=== PATIENT | male | born 1970 | race Caucasian/White ===

== ENCOUNTER 2016-11-27 13:27 | Emergency (ER) | payer BC ==
[2016-11-27 15:31] VITALS: BP 130/83
--- NOTE | 2016-11-27 16:01 | UC ---
UC General HPI - HPI Summary HPI Summary: patient has had flu like symptoms for 3 days. - History of Current Complaint Chief Complaint: UCGeneralIllness Stated Complaint: FLU LIKE SXS Time Seen by Provider: 11/27/16 15:26 Hx Obtained From: Patient Onset/Duration: Sudden Onset, Lasting Days Onset Severity: Severe Current Severity: Moderate Pain Intensity: 6 Associated Signs & Symptoms: Positive: Headache - Allergy/Home Medications Allergies/Adverse Reactions: Allergies Allergy/AdvReac Type Severity Reaction Status Date / Time Clavulanic Acid AdvReac Intermediate See Comment Verified 11/27/16 15:16 [From Augmentin] Home Medications: Home Medications NK [No Home Medications Reported] 11/27/16 [History Confirmed 11/27/16] PMH/Surg Hx/FS Hx/Imm Hx Previously Healthy: Yes Endocrine History Of: Denies: Diabetes, Thyroid Disease Cardiovascular History Of: Denies: Cardiac Disorders, Hypertension Respiratory History Of: Denies: COPD, Asthma GI/ History Of: Denies: Ulcer - Surgical History Surgical History: Yes Surgery Procedure, Year, and Place: Appendectomy. T&A. ear tubes - Family History Known Family History: Positive: Hypertension - Social History Alcohol Use: Rare Substance Use Type: None Smoking Status (MU): Never Smoked Tobacco - Immunization History Most Recent Influenza Vaccination: Not the Season Most Recent Tetanus Shot: 11/16/12 Review of Systems Constitutional: Fever, Chills Skin: Negative Eyes: Negative ENT: Sore Throat, Nasal Discharge Respiratory: Shortness Of Breath, Cough Cardiovascular: Negative Gastrointestinal: Negative Genitourinary: Negative Motor: Negative Neurovascular: Negative Musculoskeletal: Myalgia Neurological: Negative All Other Systems Reviewed And Are Negative: Yes Physical Exam Triage Information Reviewed: Yes Appearance: Well-Nourished, Ill-Appearing, Pain Distress Vital Signs: Initial Vital Signs Temp 98.6 F 11/27/16 15:15 Pulse 76 11/27/16 15:15 Resp 18 11/27/16 15:15 BP 130/83 11/27/16 15:15 Pulse Ox 100 11/27/16 15:15 Vital Signs Reviewed: Yes Eye Exam: Normal Eyes: Positive: Conjunctiva Clear ENT Exam: Other ENT: Positive: Pharyngeal erythema, TM red Dental Exam: Normal Neck exam: Normal Neck: Positive: Supple, Nontender, Enlarged Nodes @ - bilateral cervical Respiratory Exam: Normal Respiratory: Positive: Chest non-tender, Lungs clear, Normal breath sounds Cardiovascular Exam: Normal Cardiovascular: Positive: RRR, No Murmur, Pulses Normal Abdominal Exam: Normal Abdomen Description: Positive: Nontender, No Organomegaly, Soft Bowel Sounds: Positive: Present Musculoskeletal Exam: Normal Musculoskeletal: Positive: Strength Intact, ROM Intact, No Edema Neurological Exam: Normal Neurological: Positive: Alert, Muscle Tone Normal Psychological Exam: Normal Skin Exam: Normal Course/Dx - Course Course Of Treatment: history obtained, exam performed, meds reviewed, prednisone prescribed. rapid flu neg. - Differential Dx - Multi-Symptom Provider Diagnoses: URI. pharnygitis Discharge - Discharge Plan Condition: Stable Disposition: HOME Patient Education Materials: Pharyngitis (ED) Additional Instructions: take the medication as prescribed. Increase your fluid intake and get plenty of rest. Continue with ibuprofen and tylenol as needed for pain.
== END 2016-11-27 16:09 | disposition home or self-care (01) ==
LOC: UCCORT 13:27
DX: J06.9 Acute upper respiratory infection, unspecified (principal); J02.9 Acute pharyngitis, unspecified; Z88.1 Allergy status to other antibiotic agents
CPT/HCPCS: 87502; 99211; G0463

== ENCOUNTER 2017-07-04 17:01 | Emergency (ER) | payer BC ==
[2017-07-04] MEDS ORDERED: Acetaminophen TAB* 325 MG PO ONE (17:37)
[2017-07-04 17:42] VITALS: BP 126/84
--- NOTE | 2017-07-04 18:30 | RAD ---
Indication: Right knee pain. 4 views of the right knee demonstrates no fracture. No other bone or joint abnormality is noted. IMPRESSION: No fracture of the right knee is noted.
--- NOTE | 2017-07-04 19:01 | UC ---
Knee Pain HPI - HPI Summary HPI Summary: YESTERDAY WHILE WORKING ON [employer], STOOD UP AND RIGHT KNEE DISLOCATED. KNEE WENT BACK INTO PLACE, BUT TO DAY KNEE IS PAINFUL (AT PATELLA) AND FEELS UNSTABLE TO WALK ON. NO HISTORY OF PREVIOUS INJURY - History of Current Complaint Chief Complaint: UCLowerExtremity Stated Complaint: RIGHT KNEE POPPED OUT OF JOINT Time Seen by Provider: 07/04/17 17:35 Hx Obtained From: Patient, Family/Hematologist Oncologist Onset/Duration: Sudden Onset, Lasting Days, Still Present Severity Initially: Moderate Severity Currently: Moderate Character: Dull, Aching Aggravating Factor(s): Movement, Weight Bearing Alleviating Factor(s): Position, Cold, OTC Meds Associated Signs And Symptoms: Positive: Swelling Able to Bear Weight: No - Risk Factors Septic Arthritis Risk Factor: Negative Gout Risk Factor: Negative - Allergies/Home Medications Allergies/Adverse Reactions: Allergies Allergy/AdvReac Type Severity Reaction Status Date / Time Clavulanic Acid AdvReac Intermediate See Comment Verified 07/04/17 17:42 [From Augmentin] Home Medications: Home Medications NK [No Home Medications Reported] 07/04/17 [History Confirmed 07/04/17] PMH/Surg Hx/FS Hx/Imm Hx Previously Healthy: Yes - Surgical History Surgical History: Yes Surgery Procedure, Year, and Place: Appendectomy. T&A. ear tubes - Family History Known Family History: Positive: Hypertension - Social History Occupation: Employed Full-time Lives: With Family Alcohol Use: None Substance Use Type: None Smoking Status (MU): Never Smoked Tobacco - Immunization History Most Recent Influenza Vaccination: Not the Season Most Recent Tetanus Shot: 11/16/12 Review of Systems Constitutional: Negative Skin: Negative Eyes: Negative ENT: Negative Respiratory: Negative Cardiovascular: Negative Gastrointestinal: Negative Genitourinary: Negative Motor: Negative Neurovascular: Negative Musculoskeletal: Arthralgia, Decreased ROM - PATELLAR PAIN WITH EXTENSION, Edema , Myalgia Neurological: Negative Psychological: Negative All Other Systems Reviewed And Are Negative: Yes Physical Exam Triage Information Reviewed: Yes Appearance: Well-Appearing, Well-Nourished, Pain Distress - MILD Vital Signs: Initial Vital Signs Temp 99 F 07/04/17 17:35 Pulse 74 07/04/17 17:35 Resp 16 07/04/17 17:35 BP 126/84 07/04/17 17:35 Pulse Ox 99 07/04/17 17:35 Vital Signs Reviewed: Yes Eye Exam: Normal ENT Exam: Normal ENT: Positive: Normal ENT inspection, Hearing grossly normal, TMs normal Dental Exam: Normal Neck exam: Normal Neck: Positive: Supple, Nontender, No Lymphadenopathy Respiratory Exam: Normal Respiratory: Positive: Chest non-tender, Lungs clear, Normal breath sounds, No respiratory distress, No accessory muscle use Cardiovascular Exam: Normal Cardiovascular: Positive: RRR, No Murmur, Pulses Normal, Brisk Capillary Refill Abdominal Exam: Normal Musculoskeletal: Positive: Strength Limited @ - RIGHT KNEE, ROM Limited @ - PATELLAR PAIN WITH EXTENSION RIGHT KNEE, Edema @ - RIGHT KNEE Neurological Exam: Normal Psychological Exam: Normal Skin Exam: Normal Knee Pain Course/Dx - Differential Dx/Diagnosis Differential Diagnosis/HQI/PQRI: Fracture (Closed), Internal Derangement Of Knee , Patellofemoral Syndrome, Sprain, Strain Provider Diagnoses: RIGHT KNEE JOINT EFFUSION; KNEE SPRAIN Discharge - Discharge Plan Condition: Stable Disposition: HOME Patient Education Materials: Swollen Knee Joint (ED), Knee Pain (ED) Forms: *Work Release Referrals: Maurizio Hines MD [Medical Doctor] - Non Staff,Doctor [Primary Care Provider] - Additional Instructions: PHYSICAL THERAPY REFERRAL: You have been prescribed physical therapy. Treatments may include stretching, exercise, application of heat or cold, and other modalities. After an injury, PT can reduce swelling and pain. In recovery, PT is used to restore mobility and strength. Your specific treatment goals are: __X___ Reduction of Swelling (EGS, US, ice as needed) ___X__ Pain Reduction (EGS, US, ice as needed) TENS Pack Fitting and Instruction Wound Hydrotherapy __X___ Preservation of Mobility ___X__ Pentecostal of Mobility ___X__ Strength Pentecostal ___X__ Work or Sports Hardening This instruction sheet also serves as your PHYSICAL THERAPY REFERRAL! Please take it with you to the therapist, so he/she will be aware of your diagnosis and treatment plan. You may see the physical therapist of your choice for these treatments, but may wish to check with your insurance to be sure the provider you select is covered. It's important to see the doctor to whom you have been referred for follow up.
== END 2017-07-04 18:52 | disposition home or self-care (01) ==
LOC: UCCORT 17:01
DX: S83.91XA Sprain of unspecified site of right knee, initial encounter (principal); M25.461 Effusion, right knee; X58.XXXA Exposure to other specified factors, initial encounter; Y93.H3 Activity, building and construction; Y92.009 Unspecified place in unspecified non-institutional (private) residence as the place of occurrence of the external cause; Z88.1 Allergy status to other antibiotic agents
CPT/HCPCS: 99213; A9270-GY; G0463

== ENCOUNTER 2018-01-31 10:27 | Day surgery (SDC) | payer BC ==
[~2018-01-31 10:27] MED LIST: Buffered Lidocaine 0.9% SYRIN* 5 ML/SYR SYRINGE INTRADERM ONE; Dexamethasone IV* 4 MG/ML 1 ML (4 MG) IV SLOW PU ONE; Dexamethasone IV* 4 MG/ML 1 ML (4 MG) ONE; Famotidine IV* 10 MG/ML 2 ML (20 mg) IV ONE; Famotidine IV* 10 MG/ML 2 ML (20 mg) ONE
[2018-01-31] MEDS ORDERED: Bupivacaine 0.25% SDV* 30 ML ONE (13:10)
[2018-01-31] MEDS ORDERED: Midazolam* 1 MG/ML 2 ML VIAL (2 MG) ONE ×2 (13:17→13:34)
[2018-01-31] MEDS ORDERED: Lidocaine 2% PF * 5 ML VIAL ONE (13:17)
[2018-01-31] MEDS ORDERED: fentaNYL* 50 MCG/ML 2 ML VIAL (100 MCG VIAL) ONE (13:17)
[2018-01-31] MEDS ORDERED: Propofol* 10 MG/ML 20 ML BTL IV PUSH ONE (13:17)
[2018-01-31] MEDS ORDERED: fentaNYL* 50 MCG/ML 2 ML VIAL (100 MCG VIAL) IV PRN (13:39)
[2018-01-31] MEDS ORDERED: Ondansetron INJ* 2 MG/ML VIAL IV PRN (13:39)
[2018-01-31] MEDS ORDERED: Ketorolac INJ* 30 MG/ML 1 ML VIAL IV PRN (13:39)
[2018-01-31] MEDS ORDERED: HYDROcodone/ACETAMIN 5-325 MG* 1 TAB PO PRN (13:39)
[2018-01-31] MEDS ORDERED: Naloxone* 0.4 MG/ML 1 ML VIAL IV PRN (13:39)
[2018-01-31 14:04] VITALS: BP 116/80
--- NOTE | 2018-02-01 10:06 | OP ---
DATE OF OPERATION: 01/31/18 [facility] DATE OF : 72 SURGEON: Jared Abraham MD INVESTIGATIONS DIRECTOR: PENELOPE Yates ANESTHESIOLOGIST: Dr. Lubin. ANESTHESIA: Local MAC. PRE-OP DIAGNOSIS: Right carpal tunnel syndrome. POST-OP DIAGNOSIS: Right carpal tunnel syndrome. OPERATIVE PROCEDURE: Right open carpal tunnel release. INDICATIONS: Papo has had progressive carpal tunnel syndrome. We talked about risks and benefits. He wanted to proceed with surgery. ESTIMATED BLOOD LOSS: 2 mL. COMPLICATIONS: None. FINDINGS: As expected. DESCRIPTION OF PROCEDURE: Papo was seen in the preoperative holding area. The correct side, site, and procedure were identified. We came back to the operating room and the arm was prepped and draped in the usual fashion. A time- out was performed. The arm was exsanguinated with Esmarch and the tourniquet inflated to 250 mmHg. A standard 2 to 3 cm longitudinal incision was made for an open carpal tunnel release. Dissection was carried down through the subcutaneous tissue and palmar fascia. The release was carried out from distal to proximal just right off the radial aspect of the hook of the hamate. Proximally, the fascia and subcutaneous tissue was released and retracted volarly and ulnarly with a Michelle retractor and then under direct visualization, the remainder of the transverse carpal ligament and distal antebrachial fascia was released with the tenotomy scissors. Once the release was complete, I checked it, there was absolutely no compression on the nerve. I irrigated out the wound. Skin was closed with 4-0 nylon suture. The wound was dressed with Xeroform, 4 x 4, sterile Webril and an Jamal bandage. He was then woken up and taken to the recovery room in stable condition. [id number]/[facility] #: [id number] [facility]ITAL[facility]
== END 2018-01-31 14:28 | disposition home or self-care (01) ==
LOC: OREAST 10:27
PROVIDERS: ATTEND Orthopaedic Surgery Hand Surgery
DX: G56.01 Carpal tunnel syndrome, right upper limb (principal); E78.5 Hyperlipidemia, unspecified; G47.33 Obstructive sleep apnea (adult) (pediatric); K76.0 Fatty (change of) liver, not elsewhere classified; F41.9 Anxiety disorder, unspecified
CPT/HCPCS: J1100; J2250; J2704; J3010